=== PATIENT | male | born 1975 | race Caucasian/White ===

== ENCOUNTER 2017-01-25 21:35 | Inpatient (IN) | payer SELFPAY ==
--- NOTE | ~2017-01-25 | PRECARD ---
H&P [facility] [address] [place]. [address] NAME: ISAIAH WALKER : 77 STATUS : ADM [facility]#: [id number] AGE: 41 ADM/REG DATE : 01/25/17 MR#: [id number] REPORT SERV DATE: 01/25/17 DICTATED BY: PETER LUU DATE: 01/25/17 REPORT STATUS : Draft TRANSCRIBED BY: DEAN DATE: 01/25/17 DATE OF ADMISSION: 01/25/2017 Mr. Isaiah Walker is a 41-year-old gentleman, transferred from [facility] with a diagnosis of acute anterior wall myocardial infarction. Mr. Walker has no known cardiovascular history. He was feeling well until about 9 o'clock tonight, he had sudden onset of chest pain. He reported to the [facility] Emergency Room. The discomfort resolved after nitroglycerin sublingual x1 in the ER. It has not recurred. Again, his chest discomfort has completely resolved. Upon arrival to [facility], he had no chest pain at all. He was feeling quite well and was joking around, asking if he could go home. Again, he has no known cardiovascular history. He does smoke. He has no history of diabetes, hypertension, or stroke. PAST MEDICAL HISTORY: Smoking, ongoing tobacco use. MEDICATIONS: None. SOCIAL HISTORY: Ongoing tobacco. 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 Lives in [place], [place]. FAMILY HISTORY: Uncertain for premature coronary disease, no definite premature coronary artery disease. REVIEW OF SYSTEMS: Complete review of systems was obtained, pertinent negative and unremarkable except as noted above and below. All systems addressed. PHYSICAL EXAMINATION: VITAL SIGNS: Blood pressure 136/96, heart rate about 60. GENERAL: Comfortable, in no acute distress. HEENT: No xanthelasma; lips without cyanosis LUNGS: Clear to auscultation, no wheezes, rales or rhonchi; good breath sounds. COR: No JVD or hepatojugular reflux, no murmurs, rubs or gallops, impulse mid clavicular line without carotid or abdominal bruits; normal S1 and S2. ABDOMEN: Bowel sounds positive, normal activity, without tenderness, masses or hepatosplenomegaly. EXTREMITIES: No edema, cyanosis. SKIN: Normal turgor. Ms: Normal muscle strength, without kyphosis/scoliosis. NEURO/PSYCH: Alert and oriented times 4, no apparent anxiety or depression. LABORATORY DATA: Laboratories are pending. H&P [address] [address] NAME: ISAIAH WALKER : 77 STATUS : ADM IN PAT#: [id number] AGE: 41 ADM/REG DATE : 01/25/17 MR#: [id number] REPORT SERV DATE: 01/25/17 DICTATED BY: PETER LUU DATE: 01/25/17 REPORT STATUS : Draft TRANSCRIBED BY: DEAN DATE: 01/25/17 IMAGIN. EKG #1; sinus rhythm with diffuse J-point elevation with concave ST segments. 2. EKG #2; increased ST-segment elevation, diffusely, mostly in the precordial leads. ASSESSMENT: Mr. Walker is a 41-year-old gentleman with acute anterior wall myocardial infarction. I discussed the risks, benefits, and alternatives with Mr. Walker. He understands and requests to proceed with catheterization with possible angioplasty. VAISHALI/DEAN Peter Luu M.D. / [id number] CC: Peter Luu M.D.
[2017-01-26 00:57] LABS: CK-MB 157.4 NG/ML
[2017-01-26 00:58] LABS: CKMB INDEX (NOT ORD) 10.6
[2017-01-26 01:16] LABS: TROPONIN I 46.2 NG/ML (<0.05)
[2017-01-26 04:15] LABS: BASOPHILS 0.2 %; BASOPHILS ABSOLUTE 0.02 10/3/uL (0.0-0.16); EOSINOPHILS 0.9 %; EOSINOPHILS ABSOLUTE 0.11 10/3/uL (0.0-0.53); HEMATOCRIT 45.4 % (40.0-51.0); HEMOGLOBIN 15.6 g/dL (13.6-17.8); IMMATURE GRANULOCYTES 0.2 %; IMMATURE GRANULOCYTES ABSOLUTE 0.03 10/3/uL (0.0-0.11); LYMPHOCYTES 25.3 %; MEAN CORPUS HGB CONC 34.4 g/dL (32.0-36.0); MEAN CORPUSCULAR HEMOGLOB 29.8 pg (26.0-34.0); MEAN CORPUSCULAR VOLUME 86.6 fL (80-100); MEAN PLATELET VOLUME 10.8 fL (9.2-13.0); MONOCYTES 5.7 %; NEUTROPHILS 67.7 %; NEUTROPHILS ABSOLUTE 8.29 10/3/uL (2.02-8.40); PLATELET COUNT 176 10/3/uL (150-400); RBC DISTRIBUTION WIDTH 13.4 % (12.0-16.0); RED CELL COUNT 5.24 10/6/uL (4.7-6.1); WHITE BLOOD CELLS 12.3 10/3/uL (4.5-10.5)
[2017-01-26 04:24] LABS: MANUAL DIFF NO %
[2017-01-26 04:45] LABS: BUN (BLOOD UREA NITROGEN) 13 MG/DL (6-23); CALCIUM, SERUM 8.4 MG/DL (8.5-10.4); CHLORIDE, SERUM 110 MMOL/L (96-112); CHOLESTEROL 192 MG/DL (< 200); CO2 (CARBON DIOXIDE) 26 MMOL/L (24-34); CREATININE 1.05 MG/DL (0.70-1.30); GFR AFRICAN AMERICAN 102 ML/MIN (>=60); GFR NON AFRICAN AMERICAN 88 ML/MIN (>=60); GLUCOSE, SERUM 88 MG/DL (60-99); HDL CHOLESTEROL 32 MG/DL (> 39); LDL CHOLESTEROL 116 MG/DL (< 130); NON-HDL CHOLESTEROL 160 MG/DL (< 160); POTASSIUM, SERUM 4.7 MMOL/L (3.5-5.3); SODIUM, SERUM 143 MMOL/L (135-148); TRIGLYCERIDE 223 MG/DL (< 150)
[2017-01-26 07:43] LABS: CK-MB 191.5 NG/ML
[2017-01-26 07:44] LABS: CKMB INDEX (NOT ORD) 11.3; TROPONIN I 66.3 NG/ML (<0.05)
[2017-01-26 17:09] LABS: CK-MB 103.8 NG/ML
[2017-01-26 17:10] LABS: CKMB INDEX (NOT ORD) 9.9
[2017-01-27 01:22] LABS: BUN (BLOOD UREA NITROGEN) 11 MG/DL (6-23); CALCIUM, SERUM 8.9 MG/DL (8.5-10.4); CHLORIDE, SERUM 104 MMOL/L (96-112); CO2 (CARBON DIOXIDE) 26 MMOL/L (24-34); CREATININE 0.97 MG/DL (0.70-1.30); GFR AFRICAN AMERICAN 113 ML/MIN (>=60); GFR NON AFRICAN AMERICAN 97 ML/MIN (>=60); POTASSIUM, SERUM 3.9 MMOL/L (3.5-5.3); SODIUM, SERUM 138 MMOL/L (135-148)
[2017-01-27 01:23] LABS: GLUCOSE, SERUM 114 MG/DL (60-99)
[2017-01-27] MEDS ORDERED: ASAB PO (12:22)
[2017-01-27] MEDS ORDERED: COREG6 PO (12:22)
[2017-01-27] MEDS ORDERED: PLAVIX PO (12:22)
[2017-01-27] MEDS ORDERED: LIPITOR40 PO (12:23)
[2017-01-27] MEDS ORDERED: PRIN10 PO (12:23)
[2017-01-27] MEDS ORDERED: CHANTIX1 PO (12:24)
== END 2017-01-27 12:48 | disposition home or self-care (01) | DRG 247 ==
LOC: SSU2 21:35 → CVICU 23:30 → 5NO 01-26 11:46
PROVIDERS: Internal Medicine Cardiovascular Disease
PROC: 4A023N7 Measurement of Cardiac Sampling and Pressure, Left Heart, Percutaneous Approach (ICD-10-PCS; principal; 2017-01-25)
PROC: 027034Z Dilation of Coronary Artery, One Artery with Drug-eluting Intraluminal Device, Percutaneous Approach (ICD-10-PCS; 2017-01-25)
PROC: B2111ZZ Fluoroscopy of Multiple Coronary Arteries using Low Osmolar Contrast (ICD-10-PCS; 2017-01-25)
PROC: B2151ZZ Fluoroscopy of Left Heart using Low Osmolar Contrast (ICD-10-PCS; 2017-01-25)
DX: I21.09 ST elevation (STEMI) myocardial infarction involving other coronary artery of anterior wall (principal); F17.210 Nicotine dependence, cigarettes, uncomplicated; I25.10 Atherosclerotic heart disease of native coronary artery without angina pectoris
CPT/HCPCS: 71010; 80048; 80061; 82550; 82553; 82962; 83735; 84484; 85025; 85347; 85730; 93005; 93458; 99152; 99153; A9270-GY; C1760; C1769; C1874; C1887; C1894; C8929; C9606; J0583; J2250; J3010; Q9957; Q9967